=== PATIENT | male | born 1960 | race Hispanic/Latino ===

== ENCOUNTER 2018-01-20 05:15 | Inpatient (IN) | payer OTHER ==
[2018-01-20] MEDS ORDERED: Promethazine HCl 25 MG/ML VIAL ONE (05:43)
[2018-01-20] MEDS ORDERED: Ketorolac Tromethamine 30 MG/ML VIAL ONE (05:43)
[2018-01-20 06:11] LABS: #Eosinphils 0.1 thou/uL (0.0-0.7); #Lymphocytes 0.8 thou/uL (1.20-3.40); #Monocytes 1.2 thou/uL (0.11-0.59); #Neutrophils 6.9 thou/uL (1.40-6.50); %Basophils 0.1 % (0.0-1.0); %Eosinophils 0.8 % (0.0-10.0); %Lymphocytes 9.4 % (21.0-51.0); %Monocytes 12.8 % (0.0-10.0); Hemoglobin 13.7 g/dL (14.0-18.0); Mean Corpuscular HGB CONC 35.3 g/dL (32.0-36.0); Mean Corpuscular Hemoglobin 32.6 pg (27.0-31.0); Mean Corpuscular Volume 92.5 fL (78.0-98.0); Mean Platelet Volume 6.7 fL (7.4-10.4); Platelet Count 315 thou/uL (130-400); Red Blood Cell (RBC) Count 4.19 mill/uL (4.70-6.10)
[2018-01-20 06:12] LABS: ALT (SGPT) 428 U/L (8-55); AST (SGOT) 127 U/L (5-34); Albumin 3.8 g/dL (3.5-5.0); Alkaline Phosphatase 401 U/L (40-150); Anion Gap 16 mmol/L (10-20); BUN (Urea Nitrogen) 12 mg/dL (8.4-25.7); Bilirubin, Total 9.5 mg/dL (0.2-1.2); Calc. Creatinine Clearance 0 mL/min (70-130); Calcium 9.2 mg/dL (7.8-10.44); Carbon Dioxide 28 mmol/L (22-29); Chloride 81 mmol/L (98-107); Estimated GFR-MDRD Greater than 90; Globulin 4.1 g/dL (2.4-3.5); Glucose 139 mg/dL (70-105); Lipase 70 U/L (8-78); Magnesium 2.6 mg/dL (1.6-2.6); Potassium 3.4 mmol/L (3.5-5.1); Protein, Total 7.9 g/dL (6.0-8.3); Sodium 122 mmol/L (136-145)
[2018-01-20 06:16] LABS: CKMB 0.9 ng/mL (0-6.6); Troponin I Less than 0.010 ng/mL (< 0.028)
[2018-01-20] MEDS ORDERED: chlorproMAZINE HCl 25 MG in Sodium Chloride 0.9% 50 ML IVPB PRN (07:38)
[2018-01-20] MEDS ORDERED: Dextrose 50% Abboject 50 ML SYRINGE SLOW IVP PRN (07:39)
[2018-01-20] MEDS ORDERED: Dextrose 5% in Water 1,000 ML IV PRN (07:39)
[2018-01-20] MEDS ORDERED: HumaLOG 300 UNITS/3 ML VIAL SC PRN (07:39)
[2018-01-20] MEDS ORDERED: hydrALAZINE 20 MG/ML VIAL SLOW IVP PRN (07:41)
[2018-01-20] MEDS ORDERED: Morphine 2 MG/ML SYRINGE ONE (09:52)
[2018-01-20] MEDS ORDERED: Lidocaine 1% PF 5 ML VIAL ONE (10:52)
[2018-01-20] MEDS ORDERED: PHENYLEPHRINE-NS 100 MCG/ML 10 ML SYRINGE ONE (10:52)
[2018-01-20] MEDS ORDERED: Ondansetron PF 4 MG/2 ML Vial ONE (10:52)
[2018-01-20] MEDS ORDERED: PROPOFOL 200 MG/20 ML VIAL ONE (10:52)
[2018-01-20] MEDS ORDERED: Midazolam HCl 2 mg/2 ml Vial ONE (11:02)
[2018-01-20] MEDS ORDERED: Fentanyl 100 MCG/2 ML VIAL ONE (11:02)
[2018-01-20] MEDS ORDERED: Iothalamate Meglumine 60% 50 ML VIAL FS ONE (11:04)
[2018-01-20] MEDS ORDERED: Indomethacin 50 MG SUPP ONE ×2 (11:04)
[2018-01-20] MEDS ORDERED: PACU-Morphine 4MG/ML VIAL SLOW IVP PRN (11:44)
[2018-01-20] MEDS ORDERED: Meperidine HCl/PF 25 MG/ML VIAL SLOW IVP PRN (11:44)
[2018-01-20] MEDS ORDERED: Ondansetron HCl/PF 4 MG/2 ML Vial IVP PRN (11:44)
[2018-01-20] MEDS ORDERED: Promethazine HCl 25 MG/ML VIAL IM PRN (11:44)
[2018-01-20] MEDS ORDERED: Promethazine HCl 25 MG/ML VIAL SLOW IVP PRN (11:44)
[2018-01-20] MEDS ORDERED: HYDROmorphone 2 MG/ML VIAL SLOW IVP PRN (11:44)
[2018-01-20] MEDS ORDERED: SUGAMMADEX SODIUM 200 MG/2 ML VIAL ONE (12:19)
[2018-01-20] MEDS: Piperacillin/Tazobactam 4.5 GM in Sodium Chloride 0.9% 100 ML IVPB SCH ×3 (14:21→20:31)
[2018-01-20] MEDS: NS 0.9% w/ 20 MEQ KCL 1,000 ML/1,000 ML BAG IV SCH ×2 (14:22)
[2018-01-20 16:40] VITALS: BMI 24.3
[2018-01-20] MEDS: Morphine 2 MG/ML SYRINGE SLOW IVP PRN (20:32)
[2018-01-21] MEDS: NS 0.9% w/ 20 MEQ KCL 1,000 ML/1,000 ML BAG IV SCH ×3 (00:59→18:47)
[2018-01-21] MEDS: Morphine 2 MG/ML SYRINGE SLOW IVP PRN ×2 (01:03→08:04)
[2018-01-21] MEDS: Piperacillin/Tazobactam 4.5 GM in Sodium Chloride 0.9% 100 ML IVPB SCH ×3 (03:48→20:30)
[2018-01-21 06:42] LABS: #Eosinphils 0.1 thou/uL (0.0-0.7); #Lymphocytes 0.8 thou/uL (1.20-3.40); #Monocytes 0.9 thou/uL (0.11-0.59); #Neutrophils 4.9 thou/uL (1.40-6.50); %Basophils 0.5 % (0.0-1.0); %Eosinophils 1.6 % (0.0-10.0); %Monocytes 13.5 % (0.0-10.0); %Neutrophils 72.4 % (42.0-75.0); Hemoglobin 11.5 g/dL (14.0-18.0); Mean Corpuscular Hemoglobin 33.5 pg (27.0-31.0); Mean Corpuscular Volume 95.7 fL (78.0-98.0); Mean Platelet Volume 6.8 fL (7.4-10.4); Platelet Count 313 thou/uL (130-400); RBC Distribution Width 12.3 % (11.5-14.5); Red Blood Cell (RBC) Count 3.42 mill/uL (4.70-6.10); White Blood Cell (WBC) Count 6.8 thou/uL (4.8-10.8)
[2018-01-21 06:52] LABS: ALT (SGPT) 235 U/L (8-55); AST (SGOT) 70 U/L (5-34); Albumin 2.9 g/dL (3.5-5.0); Alkaline Phosphatase 278 U/L (40-150); Anion Gap 14 mmol/L (10-20); BUN (Urea Nitrogen) 13 mg/dL (8.4-25.7); Bilirubin, Total 5.1 mg/dL (0.2-1.2); Calc. Creatinine Clearance 105 mL/min (70-130); Calcium 8.2 mg/dL (7.8-10.44); Carbon Dioxide 24 mmol/L (22-29); Chloride 97 mmol/L (98-107); Estimated GFR-MDRD Greater than 90; Globulin 3.2 g/dL (2.4-3.5); Glucose 94 mg/dL (70-105); Potassium 3.5 mmol/L (3.5-5.1); Protein, Total 6.1 g/dL (6.0-8.3); Sodium 131 mmol/L (136-145)
[2018-01-21 07:05] LABS: Lipase 3076 U/L (8-78)
--- NOTE | 2018-01-21 07:48 | CON ---
DATE OF CONSULTATION: HISTORY OF PRESENT ILLNESS: The patient is a 57-year-old male prisoner, transferred from [place] for 2 days of a right upper quadrant abdominal pain. This was associated with nausea and vomiting. He has not had prior pain in the past. He underwent an ultrasound, which showed biliary dilatation, cholelithiasis, some gallbladder wall thickening, and trace pericholecystic fluid. PAST MEDICAL HISTORY: Includes diabetes mellitus, hyperlipidemia, and hypertension. HOME MEDICATIONS: Include: 1. Aspirin 81 mg daily. 2. Glipizide. 3. Hydrochlorothiazide. 4. Lisinopril. 5. Metformin. 6. Pravastatin. ALLERGIES: NO KNOWN MEDICAL ALLERGIES. SOCIAL HISTORY: He is a prisoner. FAMILY HISTORY: Negative for GI or liver disease. REVIEW OF SYSTEMS: Ten systems were reviewed and were negative except for above. PHYSICAL EXAMINATION: GENERAL: Shows a jaundiced male, in some discomfort. VITAL SIGNS: Stable. He is afebrile. HEENT: Significant for scleral icterus. NECK: Supple. CHEST: Clear. CARDIOVASCULAR: Regular rate and rhythm. ABDOMEN: Soft, diffusely tender, more so in the right upper quadrant. No rebound or guarding is noted. EXTREMITIES: Normal. NEUROLOGIC: Nonfocal. LABORATORY DATA: Shows a white blood cell count of 12.4, hemoglobin 13.7, hematocrit of 38.9, and platelet count 258. Albumin 3.6, total bilirubin of 12, alkaline phosphatase of 320, . Amylase 75, lipase 45. Ammonia 31. IMAGING DATA: CT showed obstructing stone at the level of the ampulla causing prominent intrahepatic and extrahepatic biliary ductal dilatation, cholelithiasis, prostatic enlargement, and moderate distention of the bladder. ASSESSMENT: 1. Choledocholithiasis. 2. Cholecystitis. RECOMMENDATIONS: 1. ERCP. 2. Surgical opinion. Job ID: [id number]
--- NOTE | 2018-01-21 07:50 | HP ---
PRIMARY CARE PROVIDER: None. CHIEF COMPLAINT: Abdominal pain. HISTORY OF PRESENT ILLNESS: Mr. Morales is a pleasant 57-year-old gentleman who was seen at [facility] on January 20, 2018. He reports that over the last 3 days, he has had abdominal pain. He reports that it is in the right upper quadrant, sharp, on and off, no known aggravating or relieving factor, currently 7/10, accompanied by nausea and vomiting. He denies any fevers or chills. He denies any chest pain. He denies any constipation or diarrhea. He reports constant hiccups. He was seen at [facility] earlier today and transferred to the emergency room at [facility] for further management. REVIEW OF SYSTEMS: All other systems reviewed and found to be negative. PAST MEDICAL HISTORY: Significant for; 1. Diabetes mellitus. 2. Hypertension. 3. Dyslipidemia. PAST SURGICAL HISTORY: 1. He reports having colonoscopy for GI bleed. 2. He also reports right shoulder surgery. FAMILY HISTORY: He denies any family history of coronary artery disease. SOCIAL HISTORY: He denies tobacco use, alcohol use, or recreational drug use. ALLERGIES: NO KNOWN DRUG ALLERGIES. CURRENT MEDICATIONS: Doses need to be clarified, he takes; 1. Aspirin. 2. Glipizide. 3. Hydrochlorothiazide. 4. Lisinopril. 5. Metformin. 6. Pravastatin. PHYSICAL EXAMINATION: GENERAL: On examination, Mr. Morales is awake and alert, not in acute distress. VITAL SIGNS: Blood pressure is 112/63, pulse is 73, respiratory rate 20, and oxygen saturating 98% on room air. He is afebrile. EYES: He has scleral icterus. No conjunctival pallor. ENT: Moist mucosal membranes. No oropharyngeal erythema or exudates. NECK: Supple, nontender. Trachea is midline. RESPIRATORY: Accessory muscles of breathing are not active. Chest wall movements are symmetric bilaterally. Lungs are clear to auscultation without wheeze, rhonchi, or crepitations. CARDIOVASCULAR: S1 and S2 are heard, regular. Peripheral pulses palpable. No carotid bruits. No pericardial rub. ABDOMEN: Soft, he has right upper quadrant tenderness and positive Light sign. No guarding or rigidity. Bowel sounds heard. No hepatomegaly. No splenomegaly. NEUROLOGIC: Cranial nerves 2 through 12 intact. Deep tendon reflexes 2+. MUSCULOSKELETAL: Power is 5/5 in all 4 extremities. SKIN: No rashes or subcutaneous nodules. LYMPHATICS: No cervical lymphadenopathy. PSYCHIATRIC: Normal mood, normal affect, the patient is oriented to person, place, and time. LABS AND INVESTIGATIONS: Mr. Morales labs and investigations were reviewed. He has decreased sodium of 122, decreased potassium of 3.4, normal creatinine, elevated total bilirubin of 9.5, elevated AST of 127, elevated ALT of 428, and elevated alkaline phosphatase of 401. Troponin I is less than 0.010. Lipase is normal at 70. He has normal white count, normocytic anemia with hemoglobin 13.7 and normal platelet count. He had CT scan of the abdomen and pelvis, which showed obstructing stone at the level of ampulla causing prominent intrahepatic and extrahepatic biliary ductal dilatation, cholelithiasis, age indeterminate wedge compression abnormality of T11, moderate distention of the bladder and prostate enlargement. He also had abdominal ultrasound, which showed biliary dilatation and cholelithiasis. He had questionable borderline gallbladder wall thickening and trace pericholecystic fluid. ASSESSMENT AND PLAN: Mr. Morales is a pleasant 57-year-old gentleman, who was seen at [facility] on January 20, 2018 following transfer from [facility]. His problem list includes; 1. Acute cholecystitis: Mr. Morales is presenting with acute cholecystitis. He will be admitted to the hospital for further management. He has already been started on Zosyn, which I will continue. 2. Choledocholithiasis: He also has choledocholithiasis. General Surgery and Gastroenterology services are being consulted for opinion and help with management. 3. Hyponatremia: He will be started on normal saline. We will re-check his electrolytes. 4. Hypokalemia: We will replace potassium through intravenous fluids. 5. Hypertension: The patient will be kept n.p.o. We will start him on p.r.n. IV hydralazine. 6. Diabetes mellitus type 2: We will start him on Accu-Chek and insulin sliding scale. 7. Dyslipidemia: The patient will be started on statin when he is able to take oral medications. LEVEL OF RISK: Moderate. LEVEL OF COMPLEXITY: Moderate. Job ID: [id number]
--- NOTE | 2018-01-21 08:00 | OP ---
DATE OF PROCEDURE: 01/20/2018 PREOPERATIVE DIAGNOSIS: Choledocholithiasis. DESCRIPTION OF PROCEDURE: After informed consent was obtained, the patient was placed in a left lateral decubitus position. Anesthesia was administered per the Anesthesia Department. Side-viewing endoscope was inserted into esophagus under direct visualization with ease and passed to the second portion of the duodenum with ease. No mucosal abnormalities were noted. The tapered tip cannula was inserted into the common duct and cholangiogram revealed multiple filling defects. Attempts at removing the stones with balloon was not successful. This was after a sphincterotomy was performed. A basket was then placed and the stones could not be placed into the basket. Therefore, a 7 cm, 11.5-Chilean stent was placed in good position. ASSESSMENT: 1. Choledocholithiasis - not able to remove the stones with the balloon or basket. 2. Status post sphincterotomy and stent placement. RECOMMENDATIONS: 1. Proceed with cholecystectomy. 2. Followup stent removal and removal of stones in 4 to 6 weeks. Job ID: [id number]
--- NOTE | 2018-01-21 12:19 | PDOC.PN ---
- Subjective Encounter Start Date: 01/21/18 Encounter Start Time: 07:20 Pt seen for followup re: acute cholecystitis. Denies chest pain, shortness of breath, fever or chills. - Objective Vital Signs & Weight: Vital Signs (12 hours) Temp Pulse Resp BP Pulse Ox 01/21/18 07:34 96 01/21/18 07:00 98.4 F 83 18 121/70 99 01/21/18 04:00 98.4 F 82 16 115/67 96 Weight Weight 151 lb Result Diagrams: 01/21/18 05:41 01/21/18 05:41 Additional Labs: Accuchecks 01/21/18 01/21/18 01/21/18 08:58 05:06 00:32 POC Glucose 90 90 119 H 01/20/18 01/20/18 15:47 12:56 POC Glucose 127 H 111 H Phys Exam - Physical Examination Constitutional: NAD HEENT: moist MMs, oral pharynx no lesions, 2+ tonsils scleral icterus Neck: no nodes, no JVD, supple, full ROM Respiratory: no wheezing, no rales, no rhonchi, clear to auscultation bilateral Cardiovascular: RRR, no rub S1, S2 Gastrointestinal: soft, no distention, positive bowel sounds RUQ tenderness, no guarding or rigidity Neurological: moves all 4 limbs Psychiatric: normal affect Dx/Plan (1) Acute cholecystitis Code(s): K81.0 - ACUTE CHOLECYSTITIS Status: Acute Comment: continue IV antibiotics as below. Likely for surgery tomorrow. (2) Choledocholithiasis Code(s): K80.50 - CALCULUS OF BILE DUCT W/O CHOLANGITIS OR CHOLECYST W/O OBST Status: Acute Comment: s/p ERCP, unable to remove stone. (3) Acute pancreatitis Code(s): K85.90 - ACUTE PANCREATITIS WITHOUT NECROSIS OR INFECTION, UNSP Status: Acute Comment: symptomatic management for post-ERCP pancreatitis. (4) DM2 (diabetes mellitus, type 2) Status: Chronic Comment: continue accuchecks, insulin sliding scale. (5) HTN (hypertension) Code(s): I10 - ESSENTIAL (PRIMARY) HYPERTENSION Status: Chronic Comment: controlled (6) Dyslipidemia Code(s): E78.5 - HYPERLIPIDEMIA, UNSPECIFIED Status: Chronic Comment: will hold statin for now, resume once LFTs improve - Plan * . Review of Systems - Review of Systems Constitutional: negative: fever, chills, sweats, weakness, malaise Respiratory: negative: Cough, Shortness of Breath, SOB with Excertion, Pleuritic Pain, Wheezing Cardiovascular: negative: chest pain, palpitations, orthopnea, paroxysmal nocturnal dyspnea, edema, light headedness Gastrointestinal: Abdominal Pain. negative: Nausea, Vomiting, Diarrhea, Constipation, Melena, Hematochezia Genitourinary: negative: Dysuria, Frequency, Incontinence, Hematuria, Retention Skin: negative: Rash, Lesions, Leonardo, Bruising - Medications/Allergies Allergies/Adverse Reactions: Allergies Allergy/AdvReac Type Severity Reaction Status Date / Time No Known Drug Allergies Allergy Verified 01/20/18 07:37 Medications: Current Medications Dextrose/Water (Dextrose 50%) 25 gm SLOW IVP PRN PRN PRN Reason: Hypoglycemia Glucagon (Glucagon) 1 mg IM PRN PRN PRN Reason: Hypoglycemia Hydralazine HCl (Apresoline) 10 mg SLOW IVP Q6H PRN PRN Reason: SBP Greater Than 170 Chlorpromazine HCl 25 mg/ (Sodium Chloride) 51 mls @ 102 mls/hr IVPB Q8H PRN; Protocol PRN Reason: Hiccups Dextrose/Water (D5w) 1,000 mls @ 0 mls/hr IV .Q0M PRN PRN Reason: Hypoglycemia Piperacillin Sod/Tazobactam (Sod 4.5 gm/ Sodium Chloride) 100 mls @ 200 mls/hr IVPB 0400,1200,2000 FORMERLY [facility], 1928–1983 Last Admin: 01/21/18 11:42 Dose: 100 mls Potassium Chloride/Sodium Chloride (Ns 0.9% W/ 20 Meq Kcl) 1,000 ml in 1,000 mls @ 120 mls/hr IV .Q8H20M FOR[facility]LY [facility], [facility]1983 Last Admin: 01/21/18 11:43 Dose: 1,000 mls Insulin Human Lispro (Humalog) 0 units SC .MILD SLIDING SCALE PRN PRN Reason: Mild Correctional Scale
--- NOTE | 2018-01-21 13:56 | PRG ---
DATE OF SERVICE: 01/21/2018 SUBJECTIVE: The patient is feeling better, still having some pain. OBJECTIVE: VITAL SIGNS: Temperature is 98.4, pulse 83, respiratory rate 18, and blood pressure 121/70. HEENT: Significant for scleral icterus, which seems better than yesterday. CHEST: Clear. CARDIOVASCULAR: Regular rate and rhythm. ABDOMEN: Soft. Tender in the right upper quadrant. LABORATORY DATA: Laboratory showed hemoglobin of 11.5, hematocrit 32.8. Chemistry showed total bilirubin of 5.1, AST 70, ALT 235, alkaline phosphatase 278. Lipase of 3076. ASSESSMENT: 1. Choledocholithiasis, status post stent placement. 2. Post endoscopic retrograde cholangiopancreatography pancreatitis. RECOMMENDATIONS: 1. Aggressive IV fluids. 2. Hold diet. 3. Repeat lipase tomorrow. Job ID: [id number]
[2018-01-21] MEDS ORDERED: Morphine 2 MG/ML SYRINGE SLOW IVP PRN (16:13)
[2018-01-21] MEDS ORDERED: Ondansetron PF 4 MG/2 ML Vial SLOW IVP PRN (16:13)
[2018-01-21] MEDS ORDERED: metFORMIN 500 MG TAB PO SCH (17:00)
--- NOTE | 2018-01-21 20:07 | DIS ---
DATE OF ADMISSION: 01/20/2018 DATE OF DISCHARGE: 01/21/2018 PRIMARY CARE PROVIDER: None. DISCHARGE DIAGNOSES: 1. Acute cholecystitis. 2. Choledocholithiasis. 3. Acute pancreatitis. 4. Hyponatremia. CONDITION OF PATIENT ON THE DAY OF DISCHARGE: Stable. I assessed Mr. Morales on the day of discharge. Please refer to my daily hospitalist progress note for further details regarding this [id number] encounter. CONSULTATIONS: General Surgery, Dr. Bolivar and Gastroenterology, Dr. Rosario. HOSPITAL COURSE: Mr. Morales is a pleasant 57-year-old gentleman, who was admitted to [facility] from the correctional system for acute cholecystitis. Please refer to my history and physical note dated 01/20/2018, for further details. He was seen by General Surgery and Gastroenterology Services. He underwent ERCP on 01/20/2018, where he was found to have choledocholithiasis. Gastroenterology Service was not able to remove the stones with the balloon or basket. He underwent sphincterotomy and stent placement. Gastroenterology Service recommended followup stent removal and removal of stones in 4-6 weeks. On 01/21, he was found to have acute pancreatitis, with a lipase level of 3076. General Surgery Service deferred his cholecystectomy procedure to 01/22/2018. Correction system wanted the patient to be transferred to [facility]. General Surgery Service facilitated the transfer. He was also hyponatremic at the time of admission, with a sodium of 122. It improved to 131 on the day of discharge. On the day of discharge, Mr. Morales has sodium of 131, potassium 3.5, total bilirubin 5.1, AST 70, ALT 235, alkaline phosphatase 278, and lipase 3076. White count is normal. He has normocytic anemia with hemoglobin of 11.5 and normal platelet count. DISCHARGE MEDICATIONS: As listed on his MARs, which are being sent to [facility]. DISCHARGE DESTINATION: [facility]. TOTAL AMOUNT OF TIME SPENT COORDINATING THIS DISCHARGE: Greater than 30 minutes. Job ID: [id number]
--- NOTE | 2018-01-21 20:22 | CON ---
DATE OF CONSULTATION: REASON FOR CONSULTATION: Gallstones. HISTORY OF PRESENT ILLNESS: Mr. Morales is a 57-year-old man transferred here from [facility]. He came in with abdominal pain, nausea, and vomiting, and was found to have markedly elevated LFTs with a bilirubin of 9. He states that he has not had any similar pain in the past, but the pain that he is currently experiencing has been constant for the past three days. He underwent an ERCP yesterday with multiple stones seen in the common duct; however, these were unable to be extracted. A stent was placed and his bilirubin did come down, but he states that his pain actually got worse after the ERCP. I ordered a lipase for this morning and that is elevated. The pain is in the epigastrium and right upper quadrant, and has not radiated or changed. He states that it is about the same as it was yesterday after the ERCP. PAST MEDICAL HISTORY: Diabetes, hypertension, and hyperlipidemia. PAST SURGICAL HISTORY: Right shoulder surgery and diagnostic laparoscopy following a trauma. FAMILY HISTORY: Noncontributory. SOCIAL HISTORY: He is incarcerated. Does not use tobacco, alcohol, or drugs. ALLERGIES: HE HAS NO KNOWN DRUG ALLERGIES. OUTPATIENT MEDICATIONS: Include aspirin, glipizide, hydrochlorothiazide, lisinopril, metformin, and pravastatin. REVIEW OF SYSTEMS: Ten system review of systems is negative except for HPI. The patient denies noting any change to his skin, eye, or urine color, although he has had people tell him that he looks yellow during this hospital admission. PHYSICAL EXAMINATION: VITAL SIGNS: The patient is afebrile with normal vital signs. GENERAL: Reveals a jaundiced, icteric man, in no acute distress, in hand and ankle cuff. HEENT: Unremarkable. NECK: Supple without lymphadenopathy or thyroid nodules. HEART: Regular in its rate and rhythm without murmurs, rubs, or gallops. LUNGS: Clear to auscultation bilaterally. He is able to take deep breaths, although this is somewhat uncomfortable for him. ABDOMEN: Soft, slightly distended, and quite tender to palpation in the epigastrium, greater than right upper quadrant. EXTREMITIES: Warm and well perfused without edema. NEUROLOGIC: No focal deficits. PSYCHIATRIC: Alert, oriented, and appropriate. LABORATORY DATA: White count is normal. Hematocrit 32 and platelets 313. Bilirubin has come down from 9.5 to 5.1, other LFTs have similarly declined, but lipase has gone up to 3076. ASSESSMENT AND PLAN: Choledocholithiasis, cholecystitis, and post endoscopic retrograde cholangiopancreatography pancreatitis. Gastroenterology plans to leave the stent in to assist in drainage of the bile duct and have him follow up in [place] for removal of the stones from his duct at the time of his stent removal. They have recommended that he proceed with laparoscopic cholecystectomy and I had him on the schedule for today, but since his pain was no better and he has evidence of pancreatitis, I counseled him for today and have rescheduled him for tomorrow. If he clinically improves, we can proceed with laparoscopic cholecystectomy. I did talk to the [facility] guards about the situation and the fact that he will need advanced procedures performed at [place] and they are working to arrange transfer if possible; however, there are no beds down there, so we will continue to care for him in the interim. The procedure of laparoscopic cholecystectomy was described to the patient. Inherent risks include, but are not limited to bleeding, infection, risks of anesthesia, damage to nearby structures including bowel, liver, and bile duct, need for open surgery, and need for other procedures. He does understand that this will not address the stones in his main bile duct and that these will need to be removed at a later date. Job ID: [id number]
[2018-01-21 21:01] VITALS: BP 110/72; TEMP 98
[2018-01-22] MEDS ORDERED: Aspirin 81 mg Enteric Coated Tablet PO SCH (09:00)
[2018-01-22] MEDS ORDERED: glipiZIDE 5 MG TAB PO SCH (09:00)
[2018-01-22] MEDS ORDERED: Hydrochlorothiazide 25 MG TAB PO SCH (09:00)
[2018-01-22] MEDS ORDERED: Lisinopril 20 MG TAB PO SCH (09:00)
--- NOTE | 2018-01-22 11:46 | DIS ---
DATE OF ADMISSION: 01/20/2018 DATE OF DISCHARGE: 01/21/2018 PRIMARY CARE PROVIDER: None. DISCHARGE DIAGNOSES: 1. Acute cholecystitis. 2. Choledocholithiasis. 3. Acute pancreatitis. 4. Hyponatremia. CONSULTATIONS DURING THIS HOSPITALIZATION: 1. General Surgery, Dr. Bolivar. 2. Gastroenterology, Dr. Can Rosario. CONDITION OF PATIENT ON THE DAY OF DISCHARGE: Stable. I assessed Mr. Morales on the day of discharge. Please refer to my daily hospitalist progress note for further details regarding this [id number] encounter. HOSPITAL COURSE: Mr. Morales is a pleasant 57-year-old gentleman, who was admitted to [facility] on December 21, 2017, for acute cholecystitis and choledocholithiasis. Please refer to my history and physical note dated January 20, 2018, for further details. Mr. Morales was seen by Gastroenterology and General Surgery Services. On January 20, he underwent ERCP. He was found to have choledocholithiasis. Gastroenterology Service was not able to remove the stones with the balloon or basket. He underwent sphincterotomy and stent placement. He will need stent removal and removal of stones in 4 to 6 weeks. Following ERCP, he developed acute pancreatitis, with a lipase level of 3076. General Surgery Service was planning for cholecystectomy on January 22, 2018. Mr. Morales is a prisoner, and the [facility] system wanted Mr. Morales transferred to [facility] for further management. General Surgery Service arranged for the transfer to [facility]. On January 21, Mr. Morales had sodium 131, which had improved from 121 at the time of admission, normal potassium, normal creatinine, total bilirubin 5.1, AST 70, ALT 235, alkaline phosphatase 278, and lipase 3076. White count 6800, hemoglobin 11.5, and platelet count 313,000. DISCHARGE MEDICATIONS: Mr. Morales' MARs are being sent with him to [facility]. He is on medications including; 1. Zosyn 4.5 g q.8 hours. 2. Aspirin 81 mg daily. 3. Glipizide 5 mg daily. 4. Hydrochlorothiazide 25 mg daily. 5. Lisinopril 20 mg daily. 6. Metformin 500 mg 2 times a day. 7. Chlorpromazine p.r.n. 8. Morphine p.r.n. 9. Zofran p.r.n. DISCHARGE DESTINATION: [facility]. TOTAL AMOUNT OF TIME SPENT COORDINATING THIS DISCHARGE: 34 minutes. Job ID: [id number]
== END 2018-01-21 22:43 | disposition short-term general hospital (02) | DRG 444 ==
LOC: EDBD 05:15 → ERS 05:15 → SDC 09:58 → SURG A 10:10
PROVIDERS: ADMIT Internal Medicine; ATTEND Internal Medicine
PROC: 0F798DZ Dilation of Common Bile Duct with Intraluminal Device, Via Natural or Artificial Opening Endoscopic (ICD-10-PCS; principal; 2018-01-20)
DX: K80.42 Calculus of bile duct with acute cholecystitis without obstruction (principal); K85.90 Acute pancreatitis without necrosis or infection, unspecified; E87.1 Hypo-osmolality and hyponatremia; D64.9 Anemia, unspecified
CPT/HCPCS: 36415; 36416; 76001; 80053; 82553; 83690; 83735; 83930; 83935; 84484; 85025; 96365; 96375; J1885; J2001; J2250; J2270; J2405; J2543; J2550; J2704; J3010; J7050; Q9961